=== PATIENT | female | born 1990 | race African-American/Black ===

== ENCOUNTER → 2020-03-28 | Outpatient (CLI) | payer OTHER ==
[~2020-03-28] MED LIST: ESTARYLLA1 EACH PO; HYDROCODON-ACE1 EAC7 PO
== END ==
LOC: LAB 09:00
PROVIDERS: ATTEND Surgery
DX: Z01.812 Encounter for preprocedural laboratory examination (principal); Z20.822 Contact with and (suspected) exposure to COVID-19

== ENCOUNTER → 2020-04-02 | Day surgery (SDC) | payer OTHER ==
[~2020-04-02] VITALS: Ht 165.1 cm; Wt 59.0 kg
--- NOTE | ~2020-04-02 | O ---
[facility] [place] [address] OPERATIVE REPORT Name: EVERT GREGORIO Room #: REG [facility]..#: [id number] Admission: 04/02/20 Attend Phys: Harjit Francisco MD Discharge: Date of : 89 Report #: [id number] THIS REPORT FOR: cc: Rodo Ambrose Steven F. DO Chu, Peter Y. MD ~ DATE OF SERVICE: 04/02/2020 PREOPERATIVE DIAGNOSIS: Prolapsed internal, external hemorrhoids posteriorly located. POSTOPERATIVE DIAGNOSIS: Prolapsed internal, external hemorrhoids posteriorly located. PROCEDURES PERFORMED: Hemorrhoidectomy, posterior prolapsed hemorrhoid. ANESTHESIA: General in prone position. SURGEON: Harjit Francisco MD COMPLICATIONS: None. ESTIMATED BLOOD LOSS: 5 mL. PROCEDURE NOTE: With the patient under general anesthesia in the prone position, the hemorrhoid is sticking out and easily identified. Anoscopy was performed. There is a suggestion of a healed anterior fissure. No active fissure identified. Small skin tag anteriorly at 12 o'clock position. Posteriorly, the hemorrhoid is identified and protruding. This is the base of it is slightly left at the midline. The skin was grasped with a hemostat. This was able to pull out the hemorrhoid quite a bit. The rest of the internal hemorrhoid on anoscopy are very mild only. The skin surrounding the hemorrhoid was anesthetized with 0.20% Marcaine. The external hemorrhoid skin was excised. The skin was then lifted off the muscle. Once the skin was free, the internal hemorrhoid component was grasped with a Harmonic scalpel and divided with the Harmonic scalpel. No bleeding was identified from the Harmonic scalpel sites. The external skin was then closed with 4-0 Vicryl in a running locking fashion. Again, on anoscopy, there is no bleeding. There is no significant residual hemorrhoid. The Gelfoam with 2% lidocaine jelly and Silvadene cream was mixed and then inserted into the canal with ____ outward. 4 x 4's, ABD tape was [facility] [place] [address] OPERATIVE REPORT Name: EVERT GREGORIO Room #: REG [facility] M.R.#: [id number] Admission: 04/02/20 Attend Phys: Harjit Francisco MD Discharge: Date of : 89 Report #: [id number] applied. The patient was awakened and then placed on her bed and taken out of the prone position. Extubated later. By: [id number] Harjit Francisco MD /nt
[2020-04-02 11:45] VITALS: BP 115/75
[2020-04-02 14:43] VITALS: BP 115/75
--- NOTE | 2020-04-04 17:06 | PATH ---
[facility] [place] [address] PATHOLOGY RPT PROCEDURE Name: SOLE GREGORIO Room #: REG [facility] M.R.#: [id number] Admission: 04/02/20 Date of : 89 Discharge: Report #: [id number] Path Case #: [id number] [facility] Accession Number: [id number] . 01 Material submitted: . hemorrhoids - HEMORRHOIDS . 01 Clinical history: . HEMORRHOIDS,PROLAPSE . 02 Diagnosis: Squamous mucosa and submucosa "hemorrhoids, hemorrhoidectomy": - Hemorrhoids with recent hemorrhage and thrombosis. - There is no evidence of malignancy. (SHA:austin; 04/04/2020) S 04/04/2020 1412 Local . 02 Electronically signed: . Timur Urrutia MD, Pathologist NPI- [id number] . 01 Gross description: . The specimen is received in formalin, labeled "Gregorio, Sole, hemorrhoids" and consists of a polypoid wrinkled dark coulter-austin tissue measuring 1.8 x 1.7 x 0.8 cm. Sectioning shows focally hemorrhagic cut surfaces and the specimen is entirely submitted in A1. (SDY; 04/03/2020) SYU/SYU 04/03/2020 1711 Local . 02 Pathologist provided ICD-10: K64.9 . 02 CPT . 323705 Specimen Comment: A courtesy copy of this report has been sent to [phone], [phone] Specimen Comment: [id number] Specimen Comment: Report sent to / DR BENJAMIN Performed at: [address], [place], [place] [id number] MD Timur Urrutia MD Phone: [phone] Performed at: [address] [id number] MD Humera Mccloud MD Phone: [phone]
== END | disposition home or self-care (01) ==
LOC: OR 10:39
PROVIDERS: ATTEND Surgery
DX: K64.8 Other hemorrhoids (principal); Z98.890 Other specified postprocedural states; Z79.899 Other long term (current) drug therapy
CPT/HCPCS: 50010; 50101; 50386; 50403; 52190; 56526; 62110; 62900; 70005